=== PATIENT | female | born 1995 | race Caucasian/White ===

== ENCOUNTER 2017-07-02 11:05 | Emergency (ER) | payer BC, OTHER ==
[~2017-07-02] VITALS: Ht 165.1 cm; Wt 59.0 kg
[2017-07-02 11:16] VITALS: TEMP 36.9; Ht 165.1 cm; Wt 59.0 kg
[2017-07-02] MEDS ORDERED: DiphenhydrAMINE HCL 50 MG/ML VIAL IV STA ×2 (11:29)
[2017-07-02] MEDS ORDERED: KETOROLAC TROMETHAMINE 30 MG/ML VIAL IV STA (11:29)
[2017-07-02] MEDS ORDERED: PROCHLORPERAZINE 5 MG/ML 2 ML VIAL IV STA (11:29)
[2017-07-02] MEDS ORDERED: MAGNESIUM SULFATE 1GM / D5W 1 GM BAG IV STA (11:29)
[2017-07-02 11:58] LABS: BASO % 0.5 %; BASO ABS # 0.02 K/uL (0-0.2); EOS % 1.2 %; EOS ABS # 0.05 K/uL (0-0.5); HEMATOCRIT 38.8 % (37-47); HEMOGLOBIN 13.7 g/dL (12.0-16.0); LYMPH % 24.2 %; LYMPH ABS # 1.02 K/uL (1.2-3.4); MEAN CELL VOLUME 84.9 fL (80-100); MEAN CORPUSCULAR HGB CONC 35.3 g/dl (32-36); MEAN PLATELET VOLUME 9.4 fL (7.4-10.4); MONO % 14.9 %; MONO ABS # 0.63 K/uL (0.11-0.59); NEUT % 59.2 %; PLATELET COUNT 242 K/uL (130-400); RED CELL DISTRIBUTION WIDTH CV 12.8 % (11.5-14.5); RED CELL DISTRIBUTION WIDTH SD 39.3 fL (36.4-46.3); WHITE BLOOD COUNT 4.22 K/uL (4.8-10.8)
[2017-07-02 12:12] LABS: ALBUMIN 4.4 gm/dl (3.4-5.0); ALT/SGPT 22 U/L (12-78); BLOOD UREA NITROGEN 14 mg/dl (7-18); CALCIUM 9.3 mg/dl (8.5-10.1); CARBON DIOXIDE 27 mmol/L (21-32); CREATININE 0.61 mg/dl (0.60-1.20); GLUCOSE 85 mg/dl (70-99); LIPASE 127 U/L (73-393); POTASSIUM 3.7 mmol/L (3.5-5.1); SODIUM 138 mmol/L (136-145)
[2017-07-02] MEDS ORDERED: POTASSIUM CHLORIDE 20 MEQ/15 ML UDC PO STA (12:13)
[2017-07-02 12:15] LABS: ALKALINE PHOSPHATASE 44 U/L (45-117); AST/SGOT 18 U/L (15-37)
--- NOTE | 2017-07-02 12:44 | EMERGENCY ROOM VISIT NOTE ---
History Report prepared by Alfred: Nellie Pineda Under the Supervision of: Dr. Tim Thompson M.D. First contact with patient: 11:10 Chief Complaint: HEADACHE Stated Complaint: BLURRED VISION, NAUSEA, HEADACHE History of Present Illness The patient is a 21 year old female who presents to the Emergency Room with complaints of persistent migraines that began 2 days ago The patient states that she has a history of migraines. She reports that this time she began experiencing changes in her vision, including aura and blurriness when she looks downward. The patient states that she thinks she might of have hit her head but is unsure. She reports that one day ago she vomited for about 7 hours, every 15 minutes, noting she has been able to keep food and liquids down today. The patient denies any neck pain. She notes that she took NyQuil, which did not relieve her pain or help her fall asleep. The patient states that she used to see a neurologist when she was younger, but has not seen one recently. She notes that her last normal menstrual period was 2 weeks ago. The patient denies taking control or any chance of . Source of History: patient Onset: 2 days ago Position: other (global) Quality: other (migraine ) Timing: other (persistent) Associated Symptoms: + vomiting, No neck pain Note: Associated symptoms include: changes in her vision, including aura and blurriness when she looks downward. Review of Systems See HPI for pertinent positives & negatives. A total of 10 systems reviewed and were otherwise negative. Past Medical & Surgical Medical Problems: (1) Migraine Family History Cancer FH: diabetes mellitus Social History Smoking Status: Never Smoker Smokeless Tobacco Use: No Alcohol Use: none Drug Use: none Marital Status: single Housing Status: lives with family Occupation Status: [employer] student Current/Historical Medications Scheduled Ondasetron Odt (Zofran Odt), 4 MG SL Q6H Sumatriptan Succinate (Imitrex), 25 MG PO PRN Allergies Coded Allergies: Penicillins (Verified Allergy, Unknown, HIVES, GI UPSET, 07/02/17) Physical Exam Vital Signs Date Time Temp Pulse Resp B/P (MAP) Pulse Ox O2 Delivery O2 Flow Rate FiO2 07/02/17 13:55 76 16 115/70 99 07/02/17 13:01 98 18 112/77 99 Room Air 07/02/17 11:16 36.9 74 16 111/83 95 Room Air Physical Exam GENERAL: Patient is a healthy-appearing well-nourished female. No evidence of meningitis or encephalitis on exam. HEAD: Normocephalic atraumatic EYES: Ocular movements intact pupils equal and react to light OROPHARYNX mucous membranes are moist no exudates present no erythema or edema present NECK: Supple no nuchal rigidity CHEST: Good equal expansion LUNGS: Clear and equal to auscultation CARDIAC: Normal S1 and S2 ABDOMEN: Soft nontender no guarding BACK: No CVA tenderness EXTREMITIES: No pain upon palpation normal muscle strength in all groups no clubbing cyanosis or edema NEURO: Patient is following commands and answering questions appropriately. Alert and oriented x3 Cranial Nerves 2-12 grossly intact Medical Decision & Procedures ER Provider Diagnostic Interpretation: Radiology results as stated below per my review and radiologist interpretation: HEAD WITHOUT CONTRAST (CT) CLINICAL HISTORY: 21 years-old Female with Pt c/o blurry vision. Acute headache with blurry vision and nausea TECHNIQUE: Multiple axial CT images of the head were obtained without contrast. A dose lowering technique was utilized adhering to the principles of ALARA. CT DOSE: 537.48 mGy.cm COMPARISON: Brain MRI 07/20/2008. FINDINGS: No acute intracranial hemorrhage, midline shift, intracranial mass, hydrocephalus, territorial ischemia or abnormal extra-axial collection. The calvarium is intact. The paranasal sinuses, mastoid air cells, and middle ear cavities are clear. IMPRESSION: No acute intracranial abnormality. The above report was generated using voice recognition software. It may contain grammatical, syntax or spelling errors. Electronically signed by: Nico Rene M.D. 07/02/2017 12:46 PM Dictated Date/Time: 07/02/2017 12:43 PM Laboratory Results 07/02/17 11:45 Red Blood Count 4.57, Mean Corpuscular Volume 84.9, Mean Corpuscular Hemoglobin 30.0, Mean Corpuscular Hemoglobin Concent 35.3, Mean Platelet Volume 9.4, Neutrophils (%) (Auto) 59.2, Lymphocytes (%) (Auto) 24.2, Monocytes (%) (Auto) 14.9, Eosinophils (%) (Auto) 1.2, Basophils (%) (Auto) 0.5, Neutrophils # (Auto ) 2.50, Lymphocytes # (Auto) 1.02, Monocytes # (Auto) 0.63, Eosinophils # (Auto ) 0.05, Basophils # (Auto) 0.02 07/02/17 11:45 Test 07/02/17 11:45 07/02/17 12:10 White Blood Count 4.22 K/uL (4.8-10.8) Red Blood Count 4.57 M/uL (4.2-5.4) Hemoglobin 13.7 g/dL (12.0-16.0) Hematocrit 38.8 % (37-47) Mean Corpuscular Volume 84.9 fL (80-100) Mean Corpuscular Hemoglobin 30.0 pg (25-34) Mean Corpuscular Hemoglobin Concent 35.3 g/dl (32-36) Platelet Count 242 K/uL (130-400) Mean Platelet Volume 9.4 fL (7.4-10.4) Neutrophils (%) (Auto) 59.2 % Lymphocytes (%) (Auto) 24.2 % Monocytes (%) (Auto) 14.9 % Eosinophils (%) (Auto) 1.2 % Basophils (%) (Auto) 0.5 % Neutrophils # (Auto) 2.50 K/uL (1.4-6.5) Lymphocytes # (Auto) 1.02 K/uL (1.2-3.4) Monocytes # (Auto) 0.63 K/uL (0.11-0.59) Eosinophils # (Auto) 0.05 K/uL (0-0.5) Basophils # (Auto) 0.02 K/uL (0-0.2) RDW Standard Deviation 39.3 fL (36.4-46.3) RDW Coefficient of Variation 12.8 % (11.5-14.5) Immature Granulocyte % (Auto) 0.0 % Immature Granulocyte # (Auto) 0.00 K/uL (0.00-0.02) Anion Gap 7.0 mmol/L (3-11) Est Creatinine Clear Calc Drug Dose 133.5 ml/min Estimated GFR () > 150.0 Estimated GFR (Non- 131.4 BUN/Creatinine Ratio 22.4 (10-20) Calcium Level 9.3 mg/dl (8.5-10.1) Total Bilirubin 0.5 mg/dl (0.2-1) Aspartate Amino Transf (AST/SGOT) 18 U/L (15-37) Alanine Aminotransferase (ALT/SGPT) 22 U/L (12-78) Alkaline Phosphatase 44 U/L (45-117) Total Protein 8.0 gm/dl (6.4-8.2) Albumin 4.4 gm/dl (3.4-5.0) Globulin 3.6 gm/dl (2.5-4.0) Albumin/Globulin Ratio 1.2 (0.9-2) Lipase 127 U/L (73-393) Urine Color YELLOW Urine Appearance CLEAR (CLEAR) Urine pH 7.0 (4.5-7.5) Urine Specific [place] 1.023 (1.000-1.030) Urine Protein NEG (NEG) Urine Glucose (UA) NEG (NEG) Urine Ketones NEG (NEG) Urine Occult Blood NEG (NEG) Urine Nitrite NEG (NEG) Urine Bilirubin NEG (NEG) Urine Urobilinogen NEG (NEG) Urine Leukocyte Esterase NEG (NEG) Urine Test NEG (NEG) Labs reviewed by ED physician. Medications Administered Medications (Trade) Dose Ordered Sig/Nayan Route Start Time Stop Time Status Last Admin Dose Admin Ketorolac Tromethamine (Toradol Inj) 30 mg NOW STAT IV 07/02/17 11:29 07/02/17 11:32 DC 07/02/17 11:58 30 MG Prochlorperazine Edisylate (Compazine Inj) 5 mg NOW STAT IV 07/02/17 11:29 07/02/17 11:32 DC 07/02/17 11:58 5 MG Diphenhydramine HCl (Benadryl Inj) 50 mg NOW STAT IV 07/02/17 11:29 07/02/17 11:32 DC 07/02/17 11:59 50 MG Magnesium Sulfate (Magnesium Sulfate) 1 gm NOW STAT IV 07/02/17 11:29 07/02/17 11:32 DC 07/02/17 11:59 1 GM Potassium Chloride (Monae Ciel Elix) 30 meq NOW STAT PO 07/02/17 12:13 07/02/17 12:15 DC 07/02/17 12:58 30 MEQ Dexamethasone Sodium Phosphate 10 mg/Syringe 2.5 ml @ 1 mls/min NOW STAT IV 07/02/17 12:54 07/02/17 12:56 DC 07/02/17 13:03 1 MLS/MIN ED Course 1115: Past medical records reviewed. The patient was evaluated in room A4. A complete history and physical examination was performed. 1129: Ordered Magnesium Sulfate 1gm IV, Benadryl Inj 50mg IV, Compazine Inj 50mg , and Toradol Inj 30mg IV. 1213: Ordered Potassium Chloride 30 meq PO. 1254: Ordered Dexamethasone Sodium Phosphate 10mg/ Syringe 2.5ml @ 1mls/min IV. 1312: Upon reexamination the patient is feeling significantly better. I discussed results and treatment plan with the patient. She verbalizes agreement and understanding. The patient is ready for discharge. Medical Decision Differential diagnosis: Etiologies such as migraine headache, meningitis, sinusitis, CO exposure, ICH, SAH, infection, tumor, headache, sinus thrombosis, arterial dissection, as well as others were entertained. This is a 21-year-old female who presents emergency department complaining of headache along with blurry vision. The patient has no evidence of meningitis encephalitis on examination. She received Toradol Compazine and Benadryl as well as magnesium in the emergency department with improvement in her symptoms. CAT scan of the head does not reveal any acute process and she does not have an elevation in her white blood count cell, red blood cell count. Her potassium was repleted in the emergency department. I do believe that the patient is well enough to be discharged home. We will trial her on zofran and Imitrex for her migraines. I also stressed the need for follow-up patient's neurologist. Patient was in agreement with the treatment plan. Medication Reconcilliation Current Medication List: was personally reviewed by me Blood Pressure Screening Patient's blood pressure: Normal blood pressure Blood pressure disposition: Did not require urgent referral Impression Primary Impression: Migraine Scribe Attestation The scribe's documentation has been prepared under my direction and personally reviewed by me in its entirety. I confirm that the note above accurately reflects all work, treatment, procedures, and medical decision making performed by me. Departure Information Dispostion Home / Self-Care Prescriptions Ondasetron Odt (ZOFRAN ODT) 4 Mg Tab 4 MG SL Q6H for Nausea, #6 TAB 5 Refills Prov: Tim Thompson MD 07/02/17 Sumatriptan Succinate (Imitrex) 25 Mg Tab 25 MG PO PRN, #30 TAB Prov: Tim Thompson MD 07/02/17 Referrals No Doctor, Assigned (PCP) Forms HOME CARE DOCUMENTATION FORM, IMPORTANT VISIT INFORMATION Patient Instructions My [facility] Additional Instructions Take Imitrex 25 mg May repeat dose x1 after two hours Follow up with Dr Sotelo's office You have been examined and treated today on an emergency basis only. This is not a substitute for, or an effort to provide, complete comprehensive medical care. It is impossible to recognize and treat all injuries or illnesses in a single emergency department visit. It is therefore important that you follow up closely with your PCP. Call as soon as possible for an appointment. Thank you for your time and consideration. I look forward to speaking with you again soon. Please don't hesitate to call us if you have any questions. Problem Qualifiers Primary Impression: Migraine Migraine type: with aura Status migrainosus presence: without status migrainosus Intractability: not intractable Qualified Codes: G43.109 - Migraine with aura, not intractable, without status migrainosus
--- NOTE | 2017-07-02 12:47 | DIAGNOSTIC IMAGING REPORT ---
HEAD WITHOUT CONTRAST (CT) CLINICAL HISTORY: 21 years-old Female with Pt c/o blurry vision. Acute headache with blurry vision and nausea TECHNIQUE: Multiple axial CT images of the head were obtained without contrast. A dose lowering technique was utilized adhering to the principles of ALARA. CT DOSE: 537.48 mGy.cm COMPARISON: Brain MRI 07/20/2008. FINDINGS: No acute intracranial hemorrhage, midline shift, intracranial mass, hydrocephalus, territorial ischemia or abnormal extra-axial collection. The calvarium is intact. The paranasal sinuses, mastoid air cells, and middle ear cavities are clear. IMPRESSION: No acute intracranial abnormality. The above report was generated using voice recognition software. It may contain grammatical, syntax or spelling errors. Electronically signed by: Nico Rene M.D. 07/02/2017 12:46 PM Dictated Date/Time: 07/02/2017 12:43 PM
[2017-07-02] MEDS ORDERED: DEXAMETHASONE INJ 10 MG in SYRINGE 0 ML IV STA (12:54)
[2017-07-02] MEDS ORDERED: ONDA4TAB10 SL (13:06)
[2017-07-02] MEDS ORDERED: SUMA25TA12 PO (13:06)
[2017-07-02 13:55] VITALS: BP 115/70; PULSE 76; O2SAT 99
== END 2017-07-02 13:55 | disposition home or self-care (01) ==
LOC: C.EDB 11:06 → C.EDA 13:55
DX: G43.109 Migraine with aura, not intractable, without status migrainosus (principal); Z83.3 Family history of diabetes mellitus; Z88.0 Allergy status to penicillin

== ENCOUNTER 2019-11-27 05:40 | Inpatient (IN) ==
[2019-11-27] MEDS ORDERED: OXYTOCIN 30 UNITS/500 ML BAG IV PRN ×2 (06:19→13:20)
[2019-11-27] MEDS ORDERED: CEFAZOLIN 1000MG 1,000 MG/7.5 ML SYR IV PRN (06:32)
[2019-11-27] MEDS: LACTATED RINGER'S 1,000 ML IV PRN ×3 (06:35→16:12)
[2019-11-27] MEDS ORDERED: CEFAZOLIN 2000MG 2,000 MG/15 ML SYR IV ONE (06:45)
[2019-11-27 06:58] LABS: Hematocrit (blood only) 33.5 % (37-47); Hemoglobin 11.7 g/dL (12.0-16.0); Mean Corpuscular Hemoglobin 30.5 pg (25-34); Mean Corpuscular Hgb Conc 34.9 g/dL (32-36); Mean Corpuscular Volume 87.5 fL (80-100); Mean Platelet Volume 10.2 fL (7.4-10.4); Platelet Count 262 K/uL (130-400); RDW Coefficient of Variation 13.1 % (11.5-14.5); RDW Standard Deviation 41.6 fL (36.4-46.3); Red Blood Count 3.83 M/uL (4.2-5.4); White Blood Count 10.41 K/uL (4.8-10.8)
[2019-11-27] MEDS: ONDANSETRON INJ 2 MG/ML 2 ML VIAL IV SCH ×2 (07:13→13:09)
--- NOTE | 2019-11-27 11:58 | History & Physical Report ---
Date of Service November 27, 2019 History of Present Illness Primary Care Provider: Cristy Mcleod MD Yimi is a 24 y/o female ; at 41 weeks gestation by LMP; Arrived for cervical balloon placement because of unfavorable cervix at term. She has some bloody show but no SPROM. GBS positive/A positive. Positive contractions; good movement Labs: (11/27/19) Blood type: A positive Antibody screen: Neg H.7 Hct: 33.5 WBC: 10.41 Plt: 262 Rubella: immune VDRL/RPR: neg Gonorrhea: neg Chlamydia: _neg HIV: neg HbSAg: neg GBS Pos Allergies Allergy/AdvReac Type Severity Reaction Status Date / Time amoxicillin Allergy Unknown HIVES, GI Verified 11/27/19 05:50 UPSET Penicillins Allergy Unknown HIVES, GI Verified 11/27/19 05:50 UPSET Home Medications Home Medications Medication Instructions Recorded Confirmed Type prenat.vits,kayla,[id number] 1 tab PO DAILY 04/06/19 11/27/19 History Patient History Medical History (Updated 11/26/19 @ 19:35 by Jenna Torres MD, FACOG) Closed dislocation of acromioclavicular joint Common wart Encounter for annual routine gynecological examination (Inactive) Hx of migraines Varicella vaccine Surgical History H/O foot surgery Social History Preferred Language: Slovak Communication Ability: Effective Medicaid Specialist Required: No Beliefs That Will Affect Care: None marital status: marital status details: FOB: Rafael Thakur (23) [phone] Current Living Situation: Spouse and Family Current Living Situation Comment: patient and spouse live with her parents current occupational status: employed current occupation: technicians and trades workers Other Information That Helps Us Care for You: No Feels Safe at Home: Yes Safety Concerns: Feels Safe At This Time Smoking Status: Never smoker Second Hand Exposure: No ; Hx Alcohol Use: No Hx Substance Use: No Review of Systems Constitutional: denies fever, chills, sweat, headache Respiratory: denies shortness of breath, difficulty breathing Cardiac: denies chest pain, palpitations, chest pressure Breast: denies breast pain : denies dysuria Physical Exam Respiratory: normal respiratory effort, lungs clear to auscultation Cardiovascular: RRR, no murmur, no edema Genitourinary: OB Exam Monitor Tracing: + external FHT monitor used, + external uterine monitor used, + category I and + normal FHT variability Results & Data Vital Signs (Past 12 Hours) Vital Signs Temp Pulse Resp BP 11/27/19 07:20 37.3 C 83 18 116/66 11/27/19 05:50 37.1 C 89 18 121/79 11/27/19 05:49 37.1 C 89 18 121/79
--- NOTE | 2019-11-27 13:24 | Labor Progress Brief Note ---
Date of Service November 27, 2019 Subjective Yimi was scheduled for postdates IOL today. Patient was admitted by the prior MD very early this morning with a diagnosis of early labor. I assumed her care as of 829, however due to a high census / acuity and staffing levels on L&D, I was asked not to either augment or induce Yimi until this time. As of now she is eating water ice and appears completely comfortable. Good FM, no LOF or VB. Assessment & Plan (1) Post term at 41 weeks gestation: Patient not making any cervical change despite admission this morning in presumed early labor. Will now begin induction as previously scheduled. Pitocin ordered. Will plan AROM when well applied. Epidural on request. Admission and Anticipated Discharge Date Admission Date: November 27, 2019 Physical Exam Physical Exam: 50/-3 [place] q10min FHT Cat1 Results & Data ([facility]) Vital Signs (Past 12 Hours) Vital Signs Temp Pulse Resp BP 11/27/19 12:25 78 129/68 11/27/19 12:24 98.2 F 20 11/27/19 07:20 99.1 F 83 18 116/66 11/27/19 05:50 98.8 F 89 18 121/79 11/27/19 05:49 98.8 F 89 18 121/79 Coding Level of Care Code None Diagnoses Post term at 41 weeks gestation O48.0; Z3A.41
[2019-11-27] MEDS ORDERED: fentaNYL citrate 100 MCG/2 ML VIAL ONE (15:16)
[2019-11-27] MEDS ORDERED: BUPIVACAINE 0.25% 30 ML VIAL ONE (15:16)
[2019-11-27] MEDS ORDERED: ePHEDrine sulfate 50 MG/ML AMP ONE (15:16)
[2019-11-27] MEDS ORDERED: fentaNYL 2MCG/ML ROPIV 1.25MG/ML 100 ML BAG EPI ONE (15:17)
[2019-11-27] MEDS ORDERED: fentaNYL 2MCG/ML ROPIV 1.25MG/ML 100 ML BAG EPI PRN (15:37)
[2019-11-27] MEDS ORDERED: ePHEDrine sulfate 50 MG/ML AMP IV PRN ×2 (15:37→18:58)
[2019-11-27] MEDS ORDERED: DiphenhydrAMINE HCL 50 MG/ML VIAL IV PRN ×2 (15:37→18:58)
[2019-11-27] MEDS ORDERED: NALOXONE HCL 0.4 MG/1 ML VIAL/CARP IV PRN ×2 (15:37→18:58)
[2019-11-27] MEDS ORDERED: ONDANSETRON INJ 2 MG/ML 2 ML VIAL IV PRN ×2 (15:37→18:58)
[2019-11-27] MEDS ORDERED: NALOXONE HCL 1 MG in SODIUM CHLORIDE 0.9% 1000ML 1,000 ML IV PRN ×2 (15:37→18:58)
--- NOTE | 2019-11-27 15:52 | Anesthesiology Consultation ---
Date of Service November 27, 2019 Patient tested negative for Covid 19. No known Covid 19 exposure. Assessment & Plan Chart Review Chart Review: Patient NOT seen in Pre Admission Testing and Acceptable Risk for Labor Epidural Consults Requested none ASA ASA2 Proposed Anesthesia Anesthesia Type: Labor Epidural and CSE Risk / Benefits Reviewed With: PT / POA / Parent / Guardian, Accepts Plan and Informed Consent Obtained History Height/Weight Height: 5 ft 5 in Weight: 85.275 kg Allergies Allergy/AdvReac Type Severity Reaction Status Date / Time amoxicillin Allergy Unknown HIVES, GI Verified 11/27/19 05:50 UPSET Penicillins Allergy Unknown HIVES, GI Verified 11/27/19 05:50 UPSET Medications Home Medications Medication Instructions Recorded Confirmed Last Taken prenat.vits,kayla,kap-[id number] 1 tab PO DAILY 04/06/19 11/27/19 11/25/19 11:00 Active Medications Generic Name Dose Route Start Last Admin Trade Name Freq PRN Reason Stop Dose Admin Lactated Ringer's 1,000 mls @ 125 mls/hr 11/27/19 06:19 11/27/19 15:11 Lr IV 11/29/19 06:18 999 mls/hr .Q8H PRN Administration L&D Protocol Protocol Cefazolin Sodium 1,000 mg in 7.5 mls @ 2.5 mls/min 11/27/19 06:32 11/27/19 15:36 Ancef 1000mg IV 12/07/19 06:31 2.5 mls/min Q8H PRN Administration Until Delivery Oxytocin 30 units in 500 mls @ 5 mls/hr 11/27/19 13:20 11/27/19 15:08 Pitocin IV 11/29/19 13:19 0.3 units/hr .Q24H PRN 5 mls/hr Labor Induction/Augmentation Titration Protocol 0.3 UNITS/HR Ondansetron HCl 4 mg 11/27/19 07:00 11/27/19 13:09 Zofran IV 12/27/19 06:59 Not Given Q6H MISAEL NPO Date Last Intake of Fluids: 11/27/19 Time Last Intake of Fluids: 13:00 Date Last Intake of Solids: 11/27/19 Time Last Intake of Solids: 13:00 Past Medical History Medical History Closed dislocation of acromioclavicular joint Common wart Encounter for annual routine gynecological examination (Inactive) Hx of migraines Varicella vaccine Exercise / Class Metabolic Activity II 4-5 Yardwork/Stairs/Walk up hill Past Family History Family History Grandmother (Maternal) Dyslipidemia Aunt Dyslipidemia Diabetes Grandfather (Maternal) Diabetes Heart disease Grandmother (Paternal) Twins, both liveborn Past Surgical History Surgical History H/O foot surgery Past Anesthesia History No Hx of Anesthesia Complications and No Family Hx of Anesthesia Complications Social History Smoking Status: Never smoker Hx Alcohol Use: No Hx Substance Use: No substance use type: does not use Review of Systems no chest pain or sob Physical Exam Vital Signs Last Vital Signs Temp 36.8 C 11/27/19 14:30 Pulse 89 11/27/19 14:53 Resp 20 11/27/19 14:30 BP 120/69 11/27/19 14:53 ENMT Mouth: no TMJ abnormality Thyromental Distance: > or= 3.5 Finger Breadths Mallampati Class: II Neck normal visual inspection Respiratory normal respiratory effort Auscultation: lungs clear to auscultation bilaterally Cardiovascular Rate/Rhythm: regular rate and regular rhythm Musculoskeletal Spine: normal cervical ROM Neurologic moves all extremities Psychiatric Orientation: alert and oriented x 3 Testing Laboratory Results 11/27/19 06:46
--- NOTE | 2019-11-27 16:53 | Labor Progress Brief Note ---
Date of Service November 27, 2019 Subjective Patient has noted excessive movement. No LOF, no VB. Comfortable with epidural. Assessment & Plan (1) Post term at 41 weeks gestation: Patient found to have malposition on exam. Discussed with patient and FOB; will need to convert to section. Discussed r/b/a and consent done. Admission and Anticipated Discharge Date Admission Date: November 27, 2019 Physical Exam Physical Exam: 5/100/-2 SROM with exam, and then, palpation reveals two buttocks. Ultrasound brought to room and confirms daryl breech position. Results & Data ([facility]) Vital Signs (Past 12 Hours) Vital Signs Temp Pulse Resp BP Pulse Ox 11/27/19 16:50 122 H 129/78 11/27/19 16:47 106 H 127/95 11/27/19 16:46 115 H 100 11/27/19 16:41 103 H 148/74 H 100 11/27/19 16:36 108 H 93/51 L 100 11/27/19 16:31 91 H 100 11/27/19 16:30 86 100/51 L 11/27/19 16:26 82 100 11/27/19 16:24 86 103/52 L 11/27/19 16:22 86 102/50 L 11/27/19 16:21 86 99 11/27/19 16:20 85 101/51 L 11/27/19 16:18 80 102/56 L 11/27/19 16:16 96 H 103/57 L 99 11/27/19 16:14 92 H 102/53 L 11/27/19 16:12 86 101/54 L 11/27/19 16:11 87 100 11/27/19 16:10 90 97/53 L 11/27/19 16:08 89 94/56 L 11/27/19 16:06 87 92/50 L 99 11/27/19 16:04 93 H 101/55 L 11/27/19 16:03 100 H 113/56 L 11/27/19 16:01 113 H 100 11/27/19 16:00 101 H 120/56 L 11/27/19 15:58 94 H 131/71 11/27/19 15:56 113 H 99 11/27/19 15:51 99 H 100 11/27/19 14:53 89 20 120/69 11/27/19 14:30 98.2 F 11/27/19 13:52 99 H 125/71 11/27/19 12:25 78 129/68 11/27/19 12:24 98.2 F 11/27/19 07:20 99.1 F 83 18 116/66 11/27/19 05:50 98.8 F 89 18 121/79 11/27/19 05:49 98.8 F 89 18 121/79 Coding Level of Care Code None Diagnoses Post term at 41 weeks gestation O48.0; Z3A.41
[2019-11-27] MEDS ORDERED: CITRIC ACID/SODIUM CITRATE 15 ML UDC ONE (16:55)
[2019-11-27] MEDS ORDERED: LACTATED RINGER'S 1,000 ML IV SCH (17:00)
[2019-11-27] MEDS ORDERED: CITRIC ACID/SODIUM CITRATE 15 ML UDC PO SCH (17:00)
[2019-11-27] MEDS ORDERED: CEFAZOLIN 2000MG 2,000 MG/15 ML SYR IV SCH (17:00)
[2019-11-27] MEDS ORDERED: MoRPHine SULFATE PF 1 MG/ML 10 ML AMP/VIAL ONE (17:30)
[2019-11-27] MEDS ORDERED: PHENYLEPHRINE 100MCG/ML 5ML SYR ONE (17:32)
[2019-11-27] MEDS ORDERED: OXYTOCIN 10 UNITS/ML VIAL ONE ×2 (17:32→17:48)
[2019-11-27] MEDS ORDERED: ONDANSETRON INJ 2 MG/ML 2 ML VIAL ONE (17:50)
[2019-11-27] MEDS ORDERED: MEPERIDINE HCL 25 MG/ML CARP/VIAL ONE (17:52)
[2019-11-27] MEDS ORDERED: ARISTA ABSORBABLE HEMOSTAT 3GM TOP ONE (17:54)
[2019-11-27] MEDS ORDERED: KETOROLAC 30 MG/ML VIAL IV PRN (18:58)
[2019-11-27] MEDS ORDERED: NALOXONE HCL 0.08 MG in SYRINGE 1.8 ML IV PRN (18:58)
[2019-11-27] MEDS ORDERED: LACTATED RINGER'S 500 ML IV PRN (18:58)
[2019-11-27] MEDS ORDERED: HYDROmorphone INJ 0.5 MG/0.5 ML SYR IV PRN (18:58)
[2019-11-27] MEDS ORDERED: MoRPHine SULFATE PF 1 MG/ML 10 ML AMP/VIAL EPI ONE (18:58)
[2019-11-27] MEDS ORDERED: NO NARCOTICS OR SEDATIVES SCH (19:00)
[2019-11-27] MEDS ORDERED: SODIUM CHLORIDE 0.9% 1000ML 1,000 ML IV SCH (19:00)
[2019-11-27] MEDS ORDERED: DC INTRASPINAL MORPHINE SCH (19:00)
--- NOTE | 2019-11-27 19:00 | Anesthesiology Progress Note ---
Date of Service November 27, 2019 Anesthesia Post Procedure Vital Signs Vital Signs: Temp Pulse Resp BP Pulse Ox 11/27/19 18:56 120 H 165/68 H 11/27/19 18:55 116 H 100 11/27/19 18:50 105 H 100 11/27/19 18:45 112 H 106/64 100 11/27/19 18:40 115 H 100 11/27/19 18:36 103 H 140/74 11/27/19 18:35 108 H 100 11/27/19 18:30 122 H 100 11/27/19 18:25 36.8 C 117 H 20 128/84 100 11/27/19 17:21 115 H 100 11/27/19 17:20 110 H 125/69 11/27/19 17:16 109 H 100 11/27/19 17:11 103 H 99 11/27/19 17:06 96 H 100 11/27/19 17:02 97 H 124/64 11/27/19 17:01 97 H 99 11/27/19 16:56 111 H 99 11/27/19 16:51 117 H 100 11/27/19 16:50 122 H 129/78 11/27/19 16:47 106 H 127/95 11/27/19 16:46 115 H 100 11/27/19 16:41 103 H 148/74 H 100 11/27/19 16:36 108 H 93/51 L 100 11/27/19 16:31 91 H 100 11/27/19 16:30 86 100/51 L 11/27/19 16:26 82 100 11/27/19 16:24 86 103/52 L 11/27/19 16:22 86 102/50 L 11/27/19 16:21 86 99 11/27/19 16:20 85 101/51 L 11/27/19 16:18 80 102/56 L 11/27/19 16:16 96 H 103/57 L 99 11/27/19 16:14 92 H 102/53 L 11/27/19 16:12 86 101/54 L 11/27/19 16:11 87 100 11/27/19 16:10 90 97/53 L 11/27/19 16:08 89 94/56 L 11/27/19 16:06 87 92/50 L 99 11/27/19 16:04 93 H 101/55 L 07/13/20 16:03 100 H 113/56 L 11/27/19 16:01 113 H 100 11/27/19 16:00 101 H 120/56 L 11/27/19 15:58 94 H 131/71 11/27/19 15:56 113 H 99 11/27/19 15:51 99 H 100 11/27/19 14:53 89 20 120/69 11/27/19 14:30 36.8 C 11/27/19 13:52 99 H 125/71 11/27/19 12:25 78 129/68 11/27/19 12:24 36.8 C 11/27/19 07:20 37.3 C 83 18 116/66 11/27/19 05:50 37.1 C 89 18 121/79 11/27/19 05:49 37.1 C 89 18 121/79 Transfer of Care Handoff Completed per policy Notes Mental Status: alert / awake / arousable Patient Amnestic to Procedure: Yes Nausea / Vomiting: adequately controlled Pain: adequately controlled Airway Patency, RR, SpO2: stable & adequate BP & HR: stable & adequate Hydration State: stable & adequate Neuraxial Anesthesia: was administered and sensory block is resolving Anesthetic Complications: no major complications apparent and Pt Satisfied with anesthetic care Notes: The patient's epidural was pulled with tip intact.
[2019-11-27] MEDS ORDERED: KETOROLAC 30 MG/ML VIAL ONE (19:01)
[2019-11-27] MEDS ORDERED: HYDROCORTISONE ACETATE 25 MG SUPP PR PRN (19:05)
[2019-11-27] MEDS ORDERED: SUPERCREAM 0.870% 15 GM JAR EXT PRN (19:05)
[2019-11-27] MEDS ORDERED: PROMETHAZINE HCL 25 MG in SODIUM CHLORIDE 0.9% 50 ML IV PRN (19:05)
[2019-11-27] MEDS ORDERED: MAGNESIUM HYDROXIDE SUSP 30 ML UDC PO PRN (19:05)
[2019-11-27] MEDS ORDERED: SENNA 8.6 MG TAB PO PRN (19:05)
[2019-11-27] MEDS ORDERED: DIPHTHERIA/TETANUS/PERTUSSIS 0.5 ML SYR/VIAL IM ONE (19:05)
[2019-11-27] MEDS ORDERED: BENZOCAINE 20% AER SPR 82.5 GM CAN EXT PRN (19:05)
[2019-11-27] MEDS ORDERED: OXYTOCIN 20 UNITS in LACTATED RINGER'S 1,000 ML IV SCH (19:30)
[2019-11-28] MEDS: LACTATED RINGER'S 1,000 ML IV SCH ×2 (04:08→12:00)
[2019-11-28 06:04] LABS: Basophils # (auto) 0.01 K/uL (0-0.2); Basophils % (auto) 0.1 %; Eosinophils # (auto) 0.01 K/uL (0-0.5); Eosinophils % (auto) 0.1 %; Hematocrit (blood only) 27.3 % (37-47); Hemoglobin 9.7 g/dL (12.0-16.0); Immature Granulocytes # (auto) 0.03 K/uL (0.00-0.02); Immature Granulocytes % (auto) 0.2 %; Lymphocytes # (auto) 0.84 K/uL (1.2-3.4); Mean Corpuscular Hemoglobin 31.1 pg (25-34); Mean Corpuscular Hgb Conc 35.5 g/dL (32-36); Mean Corpuscular Volume 87.5 fL (80-100); Mean Platelet Volume 9.7 fL (7.4-10.4); Monocytes # (auto) 0.99 K/uL (0.11-0.59); Monocytes % (auto) 8.2 %; Neutrophils # (auto) 10.18 K/uL (1.4-6.5); Neutrophils % (auto) 84.4 %; Platelet Count 197 K/uL (130-400); RDW Coefficient of Variation 13.2 % (11.5-14.5); RDW Standard Deviation 42.3 fL (36.4-46.3); Red Blood Count 3.12 M/uL (4.2-5.4); White Blood Count 12.06 K/uL (4.8-10.8)
--- NOTE | 2019-11-28 06:12 | Obstetrical Progress Note ---
Date of Service <Irwin Toscano MD - Last Filed: 11/28/19 06:34> November 28, 2019 Assessment & Plan <Irwin Toscano MD - Last Filed: 11/28/19 06:34> (1) Post term at 41 weeks gestation: POD#1 Doing well, voiding well. Advance to regular diet as tolerated. Ambulate as tolerated. Continue routine care. After discharge will have follow-up in 6 weeks. Subjective <Irwin Toscano MD - Last Filed: 11/28/19 06:34> Yimi is a 24 y/o female ; POD #1 following delivery at 41 weeks (LMP 02/12/19); doing well this morning; No abdominal cramping/pain; voiding well; not yet able to tolerate meals due to nausea, not yet ambulating. Review of Systems Constitutional: denies fever, chills, sweat, headache Respiratory: denies shortness of breath, difficulty breathing Cardiac: denies chest pain, palpitations, chest pressure Breast: denies breast pain : denies dysuria Physical Exam <Irwin Toscano MD - Last Filed: 11/28/19 06:34> General: A+O x 3 Cardio: RRR, no murmurs, gallops, or rubs Resp: Clear to auscultation bilaterally A/P Abd: NT/ND, BS positive; wound clean and healing well Ext: No lower extremity edema or calf pain Results & Data <Irwin Toscano MD - Last Filed: 11/28/19 06:34> Vital Signs (Past 12 Hours) Vital Signs Temp Pulse Pulse Resp BP BP Pulse Ox 11/28/19 03:55 36.7 C 88 16 107/69 100 11/28/19 03:30 16 99 11/28/19 02:10 16 99 11/28/19 01:22 16 98 11/28/19 00:05 16 98 11/27/19 23:32 16 97 11/27/19 22:50 36.7 C 97 H 16 111/73 100 11/27/19 20:50 36.9 C 84 16 109/66 99 11/27/19 20:41 90 116/60 11/27/19 20:40 90 98 11/27/19 20:35 97 H 98 11/27/19 20:30 97 H 97 11/27/19 20:25 90 18 97 11/27/19 20:20 94 H 98 11/27/19 20:15 90 97 11/27/19 20:10 98 H 98 11/27/19 20:05 102 H 98 11/27/19 20:00 101 H 99 11/27/19 19:59 99 H 127/71 11/27/19 19:55 101 H 18 99 11/27/19 19:50 102 H 98 11/27/19 19:45 104 H 99 11/27/19 19:40 108 H 99 11/27/19 19:35 96 H 136/68 100 11/27/19 19:30 97 H 100 11/27/19 19:25 90 18 125/65 100 11/27/19 19:20 116 H 99 11/27/19 19:16 103 H 119/64 11/27/19 19:15 104 H 18 100 11/27/19 19:10 97 H 100 11/27/19 19:05 36.7 C 95 H 18 100 11/27/19 19:00 90 100 11/27/19 18:56 120 H 165/68 H 11/27/19 18:55 95 H 100 11/27/19 18:50 105 H 100 11/27/19 18:45 112 H 18 106/64 100 11/27/19 18:40 115 H 100 11/27/19 18:36 103 H 140/74 11/27/19 18:35 108 H 100 11/27/19 18:30 122 H 100 11/27/19 18:25 36.8 C 117 H 20 128/84 100 <Natasha Siegel MD - Last Filed: 11/28/19 07:12> Co-Signing Physician Notes I have reviewed the resident's note and examined the patient myself, and agree with the note above.
[2019-11-28] MEDS ORDERED: NON-FORMULARY MEDICATION (Prenat.Vits,Cal,Min-Iron-Folic 1 TAB) PO SCH (09:00)
[2019-11-28] MEDS: SIMETHICONE 80 MG CHEW PO SCH ×5 (09:08→20:55)
[2019-11-28] MEDS: PRENATAL VITAMIN 1 TAB PO SCH (09:08)
[2019-11-28] MEDS: DOCUSATE SODIUM 100 MG CAP PO SCH ×3 (09:08→20:55)
[2019-11-28] MEDS ORDERED: DiphenhydrAMINE HCL 50 MG/ML VIAL IV PRN (12:58)
[2019-11-28] MEDS ORDERED: KETOROLAC 30 MG/ML VIAL IV PRN (12:58)
[2019-11-28] MEDS ORDERED: OXYCODONE/ACETAMINOPHEN 5mg/325mg TAB PO PRN (12:58)
[2019-11-28] MEDS ORDERED: MEPERIDINE HCL 50 MG/ML CARP IV PRN (12:58)
[2019-11-28] MEDS ORDERED: ONDANSETRON INJ 2 MG/ML 2 ML VIAL IV PRN (12:58)
[2019-11-28] MEDS: IBUPROFEN 600 MG TAB PO PRN (20:55)
[2019-11-29] MEDS: IBUPROFEN 600 MG TAB PO PRN ×4 (05:46→20:44)
[2019-11-29 06:39] LABS: Hematocrit (blood only) 27.9 % (37-47); Hemoglobin 9.4 g/dL (12.0-16.0)
--- NOTE | 2019-11-29 06:42 | Obstetrical Progress Note ---
Date of Service <Irwin Toscano MD - Last Filed: 11/29/19 06:42> November 29, 2019 Assessment & Plan <Irwin Toscano MD - Last Filed: 11/29/19 06:42> (1) Post term at 41 weeks gestation: POD#2 Doing well, voiding well. Ambulate as tolerated. Continue routine care. After discharge will have follow-up in 6 weeks. Subjective <Irwin Toscano MD - Last Filed: 11/29/19 06:42> Yimi is a 24 y/o female ; POD #2 following delivery at 40 weeks; doing well this morning; light abdominal cramping& 2/10 pain; voiding well; tolerating meals overnight and able to ambulate some Review of Systems Constitutional: denies fever, chills, sweat, headache Respiratory: denies shortness of breath, difficulty breathing Cardiac: denies chest pain, palpitations, chest pressure Breast: denies breast pain : denies dysuria Physical Exam <Irwin Toscano MD - Last Filed: 11/29/19 06:42> General: Alert, oriented. No acute distress. Cardiac: Regular rate and rhythm, no murmurs/rubs/gallops. Respiratory: Clear to auscultation bilaterally a/p, no wheezes/rales/rhonchi. No increased work of breathing. Symmetrical chest rise. No respiratory distress. Abdomen: Soft, nontender, nondistended. Bowel sounds present. Uterus: Uterine fundus firm, palpable 2cm below umbilicus. Surgical scar clean and healing well. Lower Extremities: No lower extremity edema or swelling. No deep calf pain. H benjamín's negative bilaterally. Results & Data <Irwin Toscano MD - Last Filed: 11/29/19 06:42> Vital Signs (Past 12 Hours) Vital Signs Temp Pulse Resp BP Pulse Ox 11/29/19 03:39 36.9 C 92 H 16 118/72 98 11/28/19 23:45 36.9 C 96 H 18 120/70 98 11/28/19 19:40 36.8 C 93 H 18 111/73 <Rasta Vilchis Jr, MD, FACOG - Last Filed: 11/29/19 07:34> Co-Signing Physician Notes Resident Physician Supervision Note: I was present with during the history and exam. I discussed the case with the resident and agree with the findings and plan as documented in the note. Any exceptions or clarifications are listed here: POD #2, doing well, routine care Documented By: Rasta Vilchis Jr, MD, FACOG
[2019-11-29] MEDS: DOCUSATE SODIUM 100 MG CAP PO SCH ×2 (08:17→20:44)
[2019-11-29] MEDS: PRENATAL VITAMIN 1 TAB PO SCH (08:17)
[2019-11-29] MEDS: SIMETHICONE 80 MG CHEW PO SCH ×4 (08:17→20:44)
[2019-11-30] MEDS: IBUPROFEN 600 MG TAB PO PRN ×2 (01:53→08:30)
--- NOTE | 2019-11-30 06:20 | Obstetrical Progress Note ---
Date of Service <Irwin Toscano MD - Last Filed: 11/30/19 07:20> November 30, 2019 Assessment & Plan <Irwin Toscano MD - Last Filed: 11/30/19 07:20> (1) Post term at 41 weeks gestation: POD#3 Doing well, voiding well. Ambulate as tolerated. Continue routine care. After discharge will have follow-up in 6 weeks. Subjective <Irwin Toscano MD - Last Filed: 11/30/19 07:20> Yimi is a 24 y/o female ; POD #3 following delivery at 41 weeks; doing well this morning; no abdominal cramping & 1/10 pain; voiding well; tolerating meals overnight and able to ambulate some. She says she is ready to go home today. Review of Systems Constitutional: denies fever, chills, sweat, headache Respiratory: denies shortness of breath, difficulty breathing Cardiac: denies chest pain, palpitations, chest pressure Breast: denies breast pain : denies dysuria Physical Exam <Irwin Toscano MD - Last Filed: 11/30/19 07:20> General: Alert, oriented. No acute distress. Cardiac: Regular rate and rhythm, no murmurs/rubs/gallops. Respiratory: Clear to auscultation bilaterally a/p, no wheezes/rales/rhonchi. No increased work of breathing. Symmetrical chest rise. No respiratory distress. Abdomen: Soft, nontender, nondistended. Bowel sounds present. Uterus: Uterine fundus firm, palpable 3cm below umbilicus. Surgical scar clean and healing well. Lower Extremities: No lower extremity edema or swelling. No deep calf pain. Nori's negative bilaterally. Results & Data <Irwin Toscano MD - Last Filed: 11/30/19 07:20> Vital Signs (Past 12 Hours) Vital Signs Temp Pulse Resp BP Pulse Ox 11/30/19 01:45 36.7 C 84 18 116/75 98 11/29/19 23:30 36.9 C 82 18 111/69 98 11/29/19 20:55 36.7 C 88 18 121/67 97 <Albert Overton MD, FACOG - Last Filed: 11/30/19 07:50> Co-Signing Physician Notes Resident Physician Supervision Note: I was present with Dr. Galye during the history and exam. I discussed the case with the resident and agree with the findings and plan as documented in the note. Any exceptions or clarifications are listed here: [None] Documented By: Albert Overton MD, FACOG Resident Activity Tracking <Irwin Toscano MD - Last Filed: 11/30/19 07:20> Resident Involvement: Resident Care Provided Care Provided: OB Delivery
[2019-11-30] MEDS: SIMETHICONE 80 MG CHEW PO SCH (08:30)
[2019-11-30] MEDS: DOCUSATE SODIUM 100 MG CAP PO SCH (08:30)
[2019-11-30] MEDS: PRENATAL VITAMIN 1 TAB PO SCH (08:30)
--- NOTE | 2019-12-04 13:02 | Operative Report ---
PG Post Operative Report Pre & Post Diagnosis Operation Date: 11/27/19 17:15 Pre-Op Diagnosis: Breech Post-Op Diagnosis: Same; delivery of a live female child at 1743 I identified the patient and participated in the time-out.: Yes Procedure Operation Date: 11/27/19 17:15 Actual Procedures p Section in LD(Bilateral) - Natasha Siegel MD Surgeon Natasha Siegel MD [employer] PGY1 [employer] Manuel Estimated Blood Loss 700 Findings Consistent with Post-Op Diagnosis Specimens Cord blood, placenta Anesthesia Type L&D Only Epidural Exists Complications none Disposition Accompanied Patient To Recovery: Yes Disposition: L&D Description of Procedure The patient was brought to the operating room and placed on the table in the supine position with a leftward tilt, then prepped and draped in standard s terile fashion. A hard time out was taken prior to proceeding. A pfannensteil incision was created sharply and carried down to the fascia using bovie electrocautery. The fascia was nicked and then extended using keita scissors. The edges of the fascia were grasped with Carmina clamps and elevated, then sharply and bluntly dissected off the underlying rectus. The midline of the rectus was identified and bluntly . The peritoneum was bluntly entered, and this entry was extended using pressure from the surgeon's hands. The bladder retractor was placed and the lower uterine segment was examined and found to be well developed. A bladder flap was created and the retractor was replaced behind this flap to protect the bladder. A transverse lower uterine incision was then created, with final entry to the uterine cavity made in a blunt manner with the surgeon's finger. The breech was encountered and delivered sacrum-anterior, the body was delivered an elevated, arms were swept in physiologic fashion, and the head was delivered maintaining neck flexion. The placenta was manually extracted, then the uterus was gently exteriorized from the maternal abdomen. The cavity was cleared of clot and debris using a dry lap sponge. The angles of the incision were identified with allis clamps, and the hysterotomy was then repaired in running locked fashion using 0-vicryl suture, followed by a second imbricating layer. The tubes and ovaries were examined and found to be normal bilaterally. The posterior gutter was irrigated and cleared of clot and debris. The uterus was then gently re-internalized to the abdomen. Lateral gutters were cleared of clot and debris using a damp lap sponge, and a final exam of the hysterotomy revealed good hemostasis. The rectus muscles were allowed to reapproximate naturally. The angle of the fascia was grasped with a Carmina clamp and the fascia was then repaired in running non-locked fashion with 1-vicryl suture. At the completion of repair, the fascia was examined and found to be free of any defect. The subcutaneous tissue was copiously irrigated and then reapproximated using 3-0 chromic. The skin was then closed using 4-0 monocryl in a running subcuticular fashion and a dermabond dressing was applied. The english was noted to be draining clear yellow urine as the patient was transferred back to her recovery room. I attest to the content of the Intraoperative Record and any orders documented therein. Any exceptions are noted below.
--- NOTE | 2019-12-04 13:05 | Discharge Summary ---
Date of Service December 04, 2019 Admission HPI Per Admitting Provider Yimi is a 24 y/o female ; at 41 weeks gestation by LMP; Arrived for cervical balloon placement because of unfavorable cervix at term. She has some bloody show but no SPROM. GBS positive/A positive. Positive contractions; good movement Labs: (11/27/19) Blood type: A positive Antibody screen: Neg H.7 Hct: 33.5 WBC: 10.41 Plt: 262 Rubella: immune VDRL/RPR: neg Gonorrhea: neg Chlamydia: _neg HIV: neg HbSAg: neg GBS Pos Discharge Data Procedures Performed Operation Date: 11/27/19 17:15 Actual Procedures p Section in LD(Bilateral) - Natasha Siegel MD Hospital Course (1) Post term at 41 weeks gestation: Patient underwent english balloon placement by Dr. Guerrero, followed by continuation of IOL the following morning with Dr. Siegel. Excessive movement was appreciated by the mother. At next exam and with AROM, the fetus was discovered to be in breech position, confirmed by ultrasound. The induction was abandoned and a prompt delivery was completed. This was uncomplicated. The patient was discharged home after a typical recovery with the plan for 6 week follow up as per usual. Coding Level of Care Code None Diagnoses Post term at 41 weeks gestation O48.0; Z3A.41
== END 2019-11-30 10:28 | disposition home or self-care (01) | DRG 788 ==
LOC: 4S1 05:40 → 4S2 20:56

== ENCOUNTER 2021-09-02 22:17 | Inpatient (IN) ==
[2021-09-02] MEDS ORDERED: LACTATED RINGER'S 1,000 ML IV SCH (23:15)
[2021-09-02] MEDS ORDERED: CITRIC ACID/SODIUM CITRATE 15 ML UDC PO ONE (23:17)
--- NOTE | 2021-09-02 23:25 | Labor Progress Brief Note ---
Date of Service September 02, 2021 Subjective Patient arrives to L&D with complaint of decreased movement at home this evening and pain across her entire prior incision but worse at the R end of incision. The pain flares approximately every 10 minutes. She is not having labor-like contractions, no LOF, no VB. After arriving on L&D the patient has been able to feel movement. Assessment & Plan (1) Previous delivery affecting , antepartum: Plan: Patient counseled that currently her status is reassuring, and she is not in labor. Discussed that the only way to know 100% whether a uterine scar is opening up is to look at it directly, such as during a laparotomy. The fact that it is not tender to palpation and the currently reassuring heart tones strongly sugg est that at the moment she is not experiencing a scar dehiscence. There is no way for me to know whether the scar will ever fail or to guarantee that it will hold for any particular length of time. I offered to do her repeat at this time due to her complaint of pain. Alternatively she has the option to continue to await labor if she wants to do that. She stated that she now wants to proceed to as feeling pain and decreased movement this evening scared her. Patient will be admitted for repeat . Physical Exam Constitutional: WD/WN, vitals as above ENMT: external ear and nose normal, oropharynx normal Neck: trachea midline, no thyromegaly Cardiovascular: Rate/Rhythm: regular rate and regular rhythm trace ankle edema Gastrointestinal (Abdomen): gravid, NT. Palpation of incision area on lower abdomen without tenderness Skin: no rashes, warm and dry Psychiatric: Orientation: alert Genitourinary: Cl/50/-3/posterior NST reactive, FHT Cat 1 Veyo Q10min No LOF No VB Results & Data ([facility]) Vital Signs (Past 12 Hours) Vital Signs Temp Pulse Resp BP 09/02/21 22:43 98.1 F 88 18 110/62 09/02/21 22:35 98.1 F 18 Coding Level of Care Code None Diagnoses Previous delivery affecting , antepartum O34.219
[2021-09-02] MEDS ORDERED: ceFAZolin 2000MG 2,000 MG/15 ML SYR IV SCH (23:30)
[2021-09-02 23:42] LABS: Basophils # (auto) 0.01 K/uL (0-0.2); Basophils % (auto) 0.1 %; Eosinophils # (auto) 0.08 K/uL (0-0.5); Eosinophils % (auto) 0.9 %; Hemoglobin 11.8 g/dL (12.0-16.0); Immature Granulocytes # (auto) 0.02 K/uL (0.00-0.02); Immature Granulocytes % (auto) 0.2 %; Lymphocytes # (auto) 1.24 K/uL (1.2-3.4); Lymphocytes % (auto) 14.1 %; Mean Corpuscular Hemoglobin 31.4 pg (25-34); Mean Corpuscular Volume 90.4 fL (80-100); Mean Platelet Volume 10.1 fL (7.4-10.4); Monocytes # (auto) 0.95 K/uL (0.11-0.59); Monocytes % (auto) 10.8 %; Neutrophils # (auto) 6.49 K/uL (1.4-6.5); Neutrophils % (auto) 73.9 %; Platelet Count 263 K/uL (130-400); RDW Coefficient of Variation 12.7 % (11.5-14.5); RDW Standard Deviation 41.8 fL (36.4-46.3); Red Blood Count 3.76 M/uL (4.2-5.4); White Blood Count 8.79 K/uL (4.8-10.8)
[2021-09-02 23:55] LABS: Mean Corpuscular Hgb Conc 34.7 g/dL (32-36)
[2021-09-03] MEDS ORDERED: MoRPHine SULFATE PF 1 MG/ML 10 ML AMP/VIAL ONE (00:01)
[2021-09-03] MEDS ORDERED: fentaNYL citrate 100 MCG/2 ML VIAL ONE (00:01)
--- NOTE | 2021-09-03 00:21 | Anesthesiology Consultation ---
Date of Service September 02, 2021 Assessment & Plan (1) Encounter for pre-operative examination: Chart Review Chart Review: Acceptable Risk for Surgery and Patient NOT seen in Pre Admission Testing Consults Requested none History Height/Weight Height: 5 ft 5 in Weight: 84.368 kg Allergies Allergy/AdvReac Type Severity Reaction Status Date / Time amoxicillin Allergy Unknown HIVES, GI Verified 09/02/21 22:33 UPSET Penicillins Allergy Unknown HIVES, GI Verified 09/02/21 22:33 UPSET Medications Home Medications Medication Instructions Recorded Confirmed Last Taken prenat.vits,kayla,ibg-oeoo-gfzyw 1 tab PO QAM 01/10/21 09/02/21 09/02/21 Past Medical History Medical History Closed dislocation of acromioclavicular joint Common wart Hx of migraines Exercise / Class Metabolic Activity II 4-5 Yardwork/Stairs/Walk up hill Past Family History Family History Grandmother (Maternal) Dyslipidemia Aunt Diabetes Dyslipidemia Grandfather (Maternal) Diabetes Heart disease Grandmother (Paternal) Twins, both liveborn Other No family history of adverse response to anesthesia Denies family history of Ovarian cancer Breast cancer Colorectal cancer Past Surgical History Surgical History H/O foot surgery Left History of 11/2019 for breech LFC Past Anesthesia History No Hx of Anesthesia Complications and No Family Hx of Anesthesia Complications History of PONV No Hx of PONV and No Hx of Motion Sickness Social History Smoking Status: Never smoker Hx Alcohol Use: No Hx Substance Use: No substance use type: does not use Physical Exam Vital Signs Last Vital Signs Temp 36.7 C 09/02/21 22:43 Pulse 88 09/02/21 22:43 Resp 18 09/02/21 22:43 BP 110/62 09/02/21 22:43 Testing Laboratory Results 09/02/21 23:31
[2021-09-03] MEDS ORDERED: MoRPHine SULFATE 2 MG/ML CARP IV PRN (00:34)
[2021-09-03] MEDS ORDERED: ePHEDrine sulfate 50 MG/ML AMP IV PRN (00:34)
[2021-09-03] MEDS ORDERED: NALOXONE HCL 0.08 MG in SYRINGE 1.8 ML IV PRN (00:34)
[2021-09-03] MEDS ORDERED: KETOROLAC 30 MG/ML VIAL IV PRN ×2 (00:34→18:35)
[2021-09-03] MEDS ORDERED: MoRPHine SULFATE PF 1 MG/ML 10 ML AMP/VIAL INT SPINAL ONE (00:34)
[2021-09-03] MEDS ORDERED: diphenhydrAMINE 50 MG/ML VIAL IV PRN ×2 (00:34→18:35)
[2021-09-03] MEDS ORDERED: NALOXONE HCL 1 MG in SODIUM CHLORIDE 0.9% 1000ML 1,000 ML IV PRN (00:34)
[2021-09-03] MEDS ORDERED: LACTATED RINGER'S 500 ML IV PRN (00:34)
[2021-09-03] MEDS ORDERED: NALOXONE HCL 0.4 MG/1 ML VIAL/CARP IV PRN (00:34)
[2021-09-03] MEDS ORDERED: ONDANSETRON INJ 2 MG/ML 2 ML VIAL IV PRN ×2 (00:34→18:35)
[2021-09-03] MEDS ORDERED: NALBUPHINE HCL INJ 10 MG/ML AMP IV PRN (00:34)
[2021-09-03] MEDS ORDERED: OXYTOCIN 10 UNITS/ML 10ML VIAL ONE (00:45)
[2021-09-03] MEDS ORDERED: SODIUM CHLORIDE 0.9% 1000ML 1,000 ML IV SCH (00:45)
[2021-09-03] MEDS ORDERED: NO NARCOTICS OR SEDATIVES SCH (00:45)
[2021-09-03] MEDS ORDERED: ONDANSETRON INJ 2 MG/ML 2 ML VIAL ONE (00:45)
[2021-09-03] MEDS ORDERED: DC INTRASPINAL MORPHINE SCH (00:45)
[2021-09-03] MEDS ORDERED: PHENYLEPHRINE HCL 10 MG/ML VIAL ONE (00:46)
--- NOTE | 2021-09-03 01:03 | Operative Report ---
PG Post Operative Report Pre & Post Diagnosis History of Prior Section SIUP @ 40w6d scar pain I identified the patient and participated in the time-out.: Yes Procedure Repeat low transverse section Surgeon Natasha Siegel MD Wet Roller [place]illa Estimated Blood Loss 450 Findings Consistent with Post-Op Diagnosis Specimens Cord blood, Placenta Drains English Anesthesia Type Spinal Complications none Disposition Accompanied Patient To Recovery: Yes Disposition: L&D Description of Procedure The patient was placed operating table in the supine position with a leftward tilt. She was prepped and draped in standard sterile fashion. The anesthetic was tested and found to be adequate. A time-out was held, identifying correct patient, procedure, positioning and preoperative antibiotics. There were no concerns. A Pfannenstiel skin incision was made with a knife and taken down to the underlying layer of fascia. The fascia was incised in the midline with the knife and taken out laterally with scissors. The superior edge of the fascial i ncision was grasped, elevated and dissected off the underlying rectus both superiorly and inferiorly. The muscles were bluntly in the midline. The peritoneum was entered bluntly. The incision was then stretched. The bladder retractor was placed. The vesicouterine peritoneum was identified, entered with scissors and taken out laterally with scissors. The bladder flap was created digitally. A hysterotomy incision was created transversely in the lower uterine segment, final entry being accomplished in a blunt manner with the screen operator's fingers. Clear amniotic fluid was encountered. The screen operator's hand was used to elevate the head to the hysterotomy. The head was delivered using mild fundal pressure, and the shoulders and body followed without difficulty. There was a nuchal cord x1. The cord was clamped and cut and the infant was then handed off to the awaiting authors motivational. Cord blood was obtained. The placenta was Manually extracted. The uterus was exteriorized and cleared of all clot and debris with moistened laparotomy sponges. The hysterotomy incision was repaired in two layers, the first in a running locked layer, the second in an imbricating layer. The ovaries and tubes were seen to be normal bilaterally. The uterus was gently replaced in the abdomen, and the gutters were cleared of clot and debris. A final inspection of the hysterotomy revealed good hemostasis. The rectus muscles were allowed to reapproximate naturally. The fascia was then reapproximated with 1 Vicryl in a running nonlocked manner. The fascia was examined and found to be free of defect following closure. The subcutaneous tissue was copiously irrigated and reapproximated with 0-chromic, then the skin edges were closed with 4-0 monocryl in a subcuticular fashion. A dermabond dressing was applied. The english was found to be draining clear yellow urine at completion of the procedure. I attest to the content of the Intraoperative Record and any orders documented therein. Any exceptions are noted below. I attest to the content of the Intraoperative Record and any orders documented therein. Any exceptions are noted below. OB Procedure Charges [id number]
--- NOTE | 2021-09-03 01:11 | Anesthesiology Progress Note ---
Date of Service September 03, 2021 Anesthesia Post Procedure Vital Signs Vital Signs: Temp Pulse Resp BP Pulse Ox 09/03/21 01:06 113 H 165/121 H 100 09/02/21 22:43 36.7 C 88 18 110/62 09/02/21 22:35 36.7 C 18 Transfer of Care Handoff Completed per policy Notes Mental Status: alert / awake / arousable and participated in evaluation Patient Amnestic to Procedure: No Nausea / Vomiting: adequately controlled Pain: adequately controlled Airway Patency, RR, SpO2: stable & adequate BP & HR: stable & adequate Hydration State: stable & adequate Neuraxial Anesthesia: was administered and sensory block is resolving Anesthetic Complications: no major complications apparent and Pt Satisfied with anesthetic care
[2021-09-03] MEDS ORDERED: SENNA 8.6 MG TAB PO PRN (02:16)
[2021-09-03] MEDS ORDERED: MAGNESIUM HYDROXIDE SUSP 30 ML UDC PO PRN (02:16)
[2021-09-03] MEDS ORDERED: LACTATED RINGER'S 1,000 ML IV SCH (02:16)
[2021-09-03] MEDS ORDERED: DIPHTHERIA/TETANUS/PERTUSSIS 0.5 ML SYR/VIAL IM ONE (02:16)
[2021-09-03] MEDS ORDERED: OXYTOCIN 30 UNITS in LACTATED RINGER'S 1,000 ML IV SCH (02:16)
[2021-09-03] MEDS ORDERED: BENZOCAINE 20% AER SPR 82.5 GM CAN EXT PRN (02:16)
[2021-09-03] MEDS ORDERED: HYDROCORTISONE ACETATE 25 MG SUPP PR PRN (02:16)
[2021-09-03] MEDS: SIMETHICONE 80 MG CHEW PO SCH ×4 (08:23→20:47)
[2021-09-03] MEDS: PRENATAL VITAMIN 1 TAB PO SCH (08:23)
[2021-09-03] MEDS: DOCUSATE SODIUM 100 MG CAP PO SCH ×2 (08:23→20:47)
[2021-09-03] MEDS: FERROUS SULFATE 325 MG TAB PO SCH (08:23)
[2021-09-03] MEDS: ACETAMINOPHEN 325 MG TAB PO PRN (17:50)
[2021-09-03] MEDS ORDERED: diphenhydrAMINE Capsule 25 MG CAP PO PRN (18:35)
[2021-09-03] MEDS ORDERED: oxyCODONE/ACETAMINOPHEN 5mg/325mg TAB PO PRN (18:35)
[2021-09-03] MEDS ORDERED: MEPERIDINE HCL 50 MG/ML CARP IV PRN (18:35)
[2021-09-03] MEDS ORDERED: PROMETHAZINE HCL 25 MG in SODIUM CHLORIDE 0.9% 50 ML IV PRN (18:35)
[2021-09-04] MEDS: ACETAMINOPHEN 325 MG TAB PO PRN ×4 (00:07→21:31)
--- NOTE | 2021-09-04 06:01 | Obstetrical Progress Note ---
Date of Service <Talishachantal Carl DO - Last Filed: 09/04/21 07:01> September 04, 2021 Assessment & Plan <Talisha Carl DO - Last Filed: 09/04/21 07:01> (1) Encounter for care and examination after delivery: 26 yo post op day1 from c/s , doing well. -Continue routine post care. -vital signs reviewed and WNL (Tmax 36.9) -Blood Type A+, GBS-, Rubella immune -Encourage ambulation, monitor and control pain with Motrin, tylenol PRN, resume regular diet, monitor lochia -encourage breast feeding -hemoglobin 11.8 Day #:: 1 <Valentine Pleitez MD - Last Filed: 09/04/21 07:34> (1) Encounter for care and examination after delivery: Subjective <Talishachantal Carl DO - Last Filed: 09/04/21 07:01> Ambulation: ambulating normally Voiding: no voiding problems Passing Gas:: Yes Diet Tolerance:: regular diet Lochia:: Small Feeding Type:: breast feeding Current Pain Level(1-10): 4 Review of Systems Denies fever, chills, sweats Denies shortness of breath, difficulty breathing, chest pain, palpitations, chest pressure. Denies breast pain. Denies dysuria. Denies headache or changes in vision. Physical Exam <Talisha SiddharthaDO - Last Filed: 09/04/21 07:01> General: Alert, oriented. No acute distress. Cardiac: Regular rate and rhythm, no murmurs/rubs/gallops. Respiratory: Clear to auscultation bilaterally a/p, no wheezes/rales/rhonchi. No increased work of breathing. Symmetrical chest rise. No respiratory distress. Abdomen: Soft, nontender, nondistended. Bowel sounds present. Uterus: Uterine fundus firm, palpable 1 cm below umbilicus. Surgical scar clean and healing well. Lower Extremities: No lower extremity edema or swelling. No deep calf pain. Nori's negative bilaterally. Results & Data ([facility]) <Talisha Cral DO - Last Filed: 09/04/21 07:01> Vital Signs (Past 12 Hours) Vital Signs Temp Pulse Resp BP Pulse Ox 09/03/21 23:45 36.9 C 81 16 98 04/20/22 21:00 37 C 86 16 109/67 99 <Valentine Pleitez MD - Last Filed: 09/04/21 07:34> Co-Signing Physician Notes Resident Physician Supervision Note: I interviewed and examined the patient. Discussed with Dr. Carl and agree with findings and plan as documented in the note. Any exceptions or clarifications are listed here: POD1 from rLTCS, doing well. VSS, exam benign and wnl, incision c/d/i. Continue routine pp care Documented By: Valentine Pleitez MD Resident Activity Tracking <Talisha Carl DO - Last Filed: 09/04/21 07:01> Resident Involvement: Resident Care Provided Care Provided: Adult Hospital Medicine and OB Delivery
[2021-09-04 06:09] LABS: Basophils # (auto) 0.01 K/uL (0-0.2); Basophils % (auto) 0.1 %; Eosinophils # (auto) 0.09 K/uL (0-0.5); Eosinophils % (auto) 1.1 %; Hematocrit (blood only) 28.6 % (37-47); Hemoglobin 9.8 g/dL (12.0-16.0); Immature Granulocytes # (auto) 0.01 K/uL (0.00-0.02); Immature Granulocytes % (auto) 0.1 %; Lymphocytes # (auto) 1.28 K/uL (1.2-3.4); Lymphocytes % (auto) 15.3 %; Mean Corpuscular Hemoglobin 31.5 pg (25-34); Mean Corpuscular Hgb Conc 34.3 g/dL (32-36); Mean Platelet Volume 9.8 fL (7.4-10.4); Monocytes # (auto) 0.85 K/uL (0.11-0.59); Monocytes % (auto) 10.2 %; Neutrophils # (auto) 6.11 K/uL (1.4-6.5); Neutrophils % (auto) 73.2 %; Platelet Count 199 K/uL (130-400); RDW Coefficient of Variation 12.9 % (11.5-14.5); RDW Standard Deviation 43.2 fL (36.4-46.3); Red Blood Count 3.11 M/uL (4.2-5.4); White Blood Count 8.35 K/uL (4.8-10.8)
[2021-09-04] MEDS: DOCUSATE SODIUM 100 MG CAP PO SCH ×2 (09:09→21:31)
[2021-09-04] MEDS: PRENATAL VITAMIN 1 TAB PO SCH (09:10)
[2021-09-04] MEDS: FERROUS SULFATE 325 MG TAB PO SCH (09:10)
[2021-09-04] MEDS: SIMETHICONE 80 MG CHEW PO SCH ×4 (09:10→21:31)
[2021-09-04] MEDS: IBUPROFEN 600 MG TAB PO PRN ×2 (10:20→17:13)
[2021-09-05] MEDS: IBUPROFEN 600 MG TAB PO PRN ×2 (05:00→10:40)
[2021-09-05] MEDS: ACETAMINOPHEN 325 MG TAB PO PRN (05:04)
[2021-09-05 06:38] LABS: Hematocrit (blood only) 29.5 % (37-47)
--- NOTE | 2021-09-05 07:40 | Obstetrical Progress Note ---
Date of Service <Talisha CarlDO - Last Filed: 09/05/21 07:40> September 05, 2021 Assessment & Plan <Talisha SiddharthaDO - Last Filed: 09/05/21 07:40> (1) Encounter for care and examination after delivery: 26 yo post op day2 from c/s , doing well. -Continue routine post care. -vital signs reviewed and WNL (Tmax 37) -Blood Type A+, GBS-, Rubella immune -Encourage ambulation, monitor and control pain with Motrin, tylenol PRN, resume regular diet, monitor lochia -encourage breast feeding -hemoglobin 11.8 Day #:: 2 <Albert Overton MD, FACOG - Last Filed: 09/05/21 07:54> (1) Encounter for care and examination after delivery: Subjective <Talisha SiddharthaDO - Last Filed: 09/05/21 07:40> Ambulation: ambulating normally Voiding: no voiding problems Passing Gas:: Yes Diet Tolerance:: regular diet Lochia:: Small Feeding Type:: breast feeding Current Pain Level(1-10): 3 Review of Systems Denies fever, chills, sweats Denies shortness of breath, difficulty breathing, chest pain, palpitations, chest pressure. Denies breast pain. Denies dysuria. Denies headache or changes in vision. Physical Exam <Talisha Carl - Last Filed: 09/05/21 07:40> General: Alert, oriented. No acute distress. Cardiac: Regular rate and rhythm, no murmurs/rubs/gallops. Respiratory: Clear to auscultation bilaterally a/p, no wheezes/rales/rhonchi. No increased work of breathing. Symmetrical chest rise. No respiratory distress. Abdomen: Soft, nontender, nondistended. Bowel sounds present. Uterus: Uterine fundus firm, palpable 1 cm below umbilicus. Surgical scar clean and healing well. Lower Extremities: No lower extremity edema or swelling. No deep calf pain. Nori's negative bilaterally. Results & Data ([facility]) <Talisha SiddharthaDO - Last Filed: 09/05/21 07:40> Vital Signs (Past 12 Hours) Vital Signs Temp Pulse Resp BP Pulse Ox 09/04/21 23:40 36.6 C 73 16 102/67 99 <Albert Overton MD, FACOG - Last Filed: 09/05/21 07:54> Co-Signing Physician Notes Resident Physician Supervision Note: I interviewed and examined the patient. Discussed with [Name of resident] and agree with findings and plan as documented in the note. Any exceptions or clarifications are listed here: [None] Documented By: Albert Overton MD, FACOG Resident Activity Tracking <Talisha Carl DO - Last Filed: 09/05/21 07:40> Resident Involvement: Resident Care Provided Care Provided: Adult Hospital Medicine and OB Delivery
[2021-09-05] MEDS: SIMETHICONE 80 MG CHEW PO SCH (08:44)
[2021-09-05] MEDS: DOCUSATE SODIUM 100 MG CAP PO SCH (08:45)
[2021-09-05] MEDS: FERROUS SULFATE 325 MG TAB PO SCH (08:45)
[2021-09-05] MEDS: PRENATAL VITAMIN 1 TAB PO SCH (08:45)
--- NOTE | 2021-09-06 13:02 | Discharge Summary ---
Date of Service September 06, 2021 Discharge Data Consultations 09/02/21 23:07 Consult Anesthesiology Stat Hospital Course (1) Encounter for care and examination after delivery: 26 yo post op day2 from c/s , doing well. -Continue routine post care. -vital signs reviewed and WNL (Tmax 37) -Blood Type A+, GBS-, Rubella immune -Encourage ambulation, monitor and control pain with Motrin, tylenol PRN, resume regular diet, monitor lochia -encourage breast feeding -hemoglobin 11.8 Coding Level of Care Code None Diagnoses Encounter for care and examination after delivery Z39.2
== END 2021-09-05 11:15 | disposition home or self-care (01) | DRG 788 ==
LOC: OPB 22:17 → 4S1 22:18 → 4E1 09-03 03:30